=== PATIENT | female | born 1965 | race Caucasian/White ===

== ENCOUNTER → 2017-03-07 | Day surgery (SDC) | payer OTHER ==
[~2017-03-07] VITALS: Ht 167.6 cm; Wt 90.0 kg
[~2017-03-07] MED LIST: BUPIVACAINE HCL PF 0.5% 30 ML VIAL ONE; CEPH-460 PO; CHLORHEXIDINE GLUCONATE 2 % 1 PACK (2 CLOTHS) TOPICAL PRN; FAMOTIDINE 20 MG/2 ML VIAL ONE; INSULIN HUMAN REGULAR 1,000 UNITS/10 ML VIAL SQ PRN; LACTATED RINGER'S 1000 ML IV PRN; LIDOCAINE HCL 2% 50 ML VIAL ONE; METOPROLOL TARTRATE 25 MG TAB PO PRN; MIDAZOLAM HCL 2 MG/2 ML VIAL ONE; NEOMYCIN/POLYMYXIN 1 ML G.U. IRRIGANT ONE; NORC5TAB PO; POVIDONE IODINE 5% (ANTISEPSIS KIT) 4 APPLICATIONS EACH NARE PRN; PROPOFOL 200 MG/20 ML AMP IV ONE; SODIUM CHLORID 0.9% 500 ML IV PRN; TRIAMCINOLONE ACETONIDE 40 MG/ML VIAL ONE; ceFAZolin 2 GM PREMIX 50 ML IV SCH
[2017-03-07 07:17] VITALS: BP 121/80; PULSE 72; RESP 18; TEMP 98.5; O2SAT 100
[2017-03-07 07:37] LABS: HEMATOCRIT 44.2 % (35.0-46.0); MEAN CELL VOLUME 87.2 FL (80.0-100.0); MEAN CORPUSCULAR HEMOGLOBIN 29.5 PG (27.0-34.0); MEAN CORPUSCULAR HGB CONC 33.8 % (32.0-36.0); PLATELET COUNT 218 TH/MM3 (150-450); RED BLOOD COUNT 5.07 MIL/MM3 (4.00-5.30); RED CELL DISTRIBUTION WIDTH 13.1 % (11.6-17.2); REVIEW FLAG FINAL; WHITE BLOOD COUNT 6.5 TH/MM3 (4.0-11.0)
[2017-03-07 09:30] VITALS: BP 122/74; PULSE 74; RESP 16; TEMP 97.7; O2SAT 98
--- NOTE | 2017-03-07 19:39 | MP ---
cc: ROSALINDA GALO MD DATE OF SURGERY 03/07/17 PREOPERATIVE DIAGNOSIS 1. Left carpal tunnel syndrome. 2. Left hand foreign body. PROCEDURE 1. Left open carpal tunnel release 2. Left hand foreign body removal under fluoroscopic guidance. 3. Use of image intensifier SURGEON Ricardo Galo III, MD PROCEDURE IN DETAIL The patient was brought to the operating room, placed supine on the operating table. After the correct site of surgery were verified by members of each team in the room multiple times including the patient and myself and after adequate preoperative markings and preoperative written consent were verified by everyone, after adequate preoperative time-out was performed to everyone's satisfaction, after adequate IV sedation had been achieved the left upper extremity was prepped and draped in traditional sterile surgical fashion. A 50/50 mixture of 2% plain lidocaine, 0.5% plain Marcaine was infiltrated into the skin and subcutaneous tissue and into the carpal tunnel. The mini C-arm was used to verify the position of the foreign body. The limb was exsanguinated with a gentle Mando wrap. A highly placed well-padded axillary tourniquet was inflated to 200 mmHg for a total of 20 minutes. A longitudinally oriented incision at the base of the palm within the skin creases was made and angulated to search for the foreign body which was identified using the assistance of the mini C-arm. It was extracted in its entirety and passed off the field. It was clearly a rock that 4 x 5 mm. There was no evidence of any infection and it was removed in its entirety. The palmar fascia was then identified and retracted in opposite directions and the transverse carpal ligament was identified and divided in its midline from its proximal most to its distal-most extents completely freeing the carpal tunnel and its contents. There was a significantly hypertrophic tenosynovium within the carpal tunnel, but there was no evidence of any mass effect otherwise or any other anatomic abnormality and all contents appeared to be in continuity. Thorough irrigation was performed. The skin edges were then reapproximated using running 4-0 nylon suture. The hand and arm were thoroughly cleansed and dried. Betadine and Adaptic dressings were applied atop the wound followed by a bulky fluff dressing and then a gentle circumferential Mando wrap in the usual fashion. The axillary tourniquet was released prior to this of the hand and all the fingers became immediately soft, pink and warm and had brisk capillary refill of less than 2-seconds. MD WINSTON Pineda III /9:06 AM /7:29 PM
== END | disposition home or self-care (01) ==
LOC: PHSDC 06:10
PROVIDERS: ATTEND Orthopaedic Surgery Hand Surgery
DX: G56.02 Carpal tunnel syndrome, left upper limb (principal); S60.552A Superficial foreign body of left hand, initial encounter; G62.9 Polyneuropathy, unspecified; Z01.818 Encounter for other preprocedural examination
CPT/HCPCS: 01810; 20525; 36415; 64721; 76000; 85027; J0690; J2250; J3010; J7120; J3301